=== PATIENT | female | born 1985 | race Hispanic/Latino ===

== ENCOUNTER 2020-03-28 08:38 | Emergency (ER) | payer MEDICARE ==
[~2020-03-28] VITALS: Ht 152.4 cm; Wt 67.3 kg
[2020-03-28] MEDS ORDERED: KEFLEX500 MG PO (09:08)
[2020-03-28] MEDS ORDERED: MAXITROL EYE O3.5 GM OP (09:08)
== END 2020-03-28 09:15 | disposition home or self-care (01) ==
LOC: FSED 09:10
DX: H00.031 Abscess of right upper eyelid (principal); T78.40XA Allergy, unspecified, initial encounter
CPT/HCPCS: 99282

== ENCOUNTER 2020-05-07 22:12 | Emergency (ER) | payer MEDICARE, OTHER ==
[~2020-05-07] VITALS: Ht 154.9 cm; Wt 75.3 kg
[~2020-05-07 22:12] MED LIST: KEFLEX500 MG PO; MAXITROL EYE O3.5 GM OP
== END 2020-05-07 23:58 | disposition home or self-care (01) ==
LOC: FSED 23:30
DX: J02.8 Acute pharyngitis due to other specified organisms (principal); O26.891 Other specified pregnancy related conditions, first trimester; Z3A.14 14 weeks gestation of pregnancy
CPT/HCPCS: 83518; 86308; 87400; 99283